=== PATIENT | female | born 1975 | race Caucasian/White ===

== ENCOUNTER 2016-10-13 16:55 | Emergency (ER) | payer OTHER ==
[~2016-10-13] VITALS: Ht 167.6 cm; Wt 69.9 kg
[~2016-10-13 16:55] MED LIST: BACTRIM DS 800/1 TAB PO; DOLOPHINE10 MG PO; TYLENOL #3 300/1 TAB PO
[2016-10-13 17:22] VITALS: BP 152/97
--- NOTE | 2016-10-13 20:00 | NUR ---
TO ER BED 6
--- NOTE | 2016-10-13 20:05 | NUR ---
41Y F BIB SELF C/O BILAT LOWER BACK PAIN X 8 DAYS WITH VOMITING AND LOOSE STOOLS.; SKIN IS PINK/WARM/DRY; AAOX4 WITH EVEN AND STEADY GAIT; LUNGS CLEAR BL; HR EVEN AND REGULAR; PT DENIES ANY FEVER, CP, SOB, OR COUGH AT THIS TIME; PATIENT STATES PAIN OF 8/10 AT THIS TIME; VSS; PATIENT POSITIONED FOR COMFORT; HOB ELEVATED; BEDRAILS UP X2; BED DOWN. ER MD MADE AWARE OF PT STATUS.
--- NOTE | 2016-10-13 20:26 | NUR ---
Patient being evaluated by physician DR DAMIAN at bedside.
[2016-10-13] MEDS ORDERED: KETOROLAC 60 MG/2 ML VIAL IM ONE (20:35)
[2016-10-13] MEDS ORDERED: ONDANSETRON 4 MG ODT PO ONE (20:35)
--- NOTE | 2016-10-13 20:53 | NUR ---
PT LEFT FOR RADIOLOGY
--- NOTE | 2016-10-13 21:11 | NUR ---
PT RETURN FROM RADIOLOGY
[2016-10-13] MEDS ORDERED: HYDROmorphone 1 MG/ML AMP IM ONE (21:20)
[2016-10-13 22:20] VITALS: BP 132/84
--- NOTE | 2016-10-13 22:20 | NUR ---
Patient discharged with v/s stable. Written and verbal after care instructions given and explained. Patient alert, oriented and verbalized understanding of instructions. . All questions addressed prior to discharge. ID band removed. Patient advised to follow up with PMD. Rx of ZOFRAN 4MG ODT, MOTRIN 800MG, ULTRAM 50MG given. Patient educated on indication of medication including possible reaction and side effects. Opportunity to ask questions provided and answered.
== END 2016-10-13 22:20 | disposition home or self-care (01) ==
LOC: MED 16:55
DX: S39.011A Strain of muscle, fascia and tendon of abdomen, initial encounter (principal); K52.9 Noninfective gastroenteritis and colitis, unspecified; R03.0 Elevated blood-pressure reading, without diagnosis of hypertension; X58.XXXA Exposure to other specified factors, initial encounter; Y93.89 Activity, other specified; Y92.89 Other specified places as the place of occurrence of the external cause; Y99.8 Other external cause status
CPT/HCPCS: 36415; 74022; 80053; 81001; 81025; 83690; 85025; 96372; 99285; J1170; J1885; S0119

== ENCOUNTER 2016-11-17 18:01 | Emergency (ER) | payer OTHER ==
[~2016-11-17] VITALS: Ht 167.6 cm; Wt 71.7 kg
[2016-11-17 18:36] VITALS: BP 135/92
--- NOTE | 2016-11-17 21:01 | NUR ---
PATIENT PRESENTS TO ED WITH C/O VOMIT SINCE AUG 2016 D/T HOLE IN MUSCOUS MEMBRANE OF UPPER DENTURES AND L LEG STIFFNESS AFTER FALLING ASLEEP AND MIGRAINE 10/10 PAIN DESPITE TAKING TYLENOL AND MOTRIN AT HOME . PT STATES SHE HAS HX OF HEP C . ; SKIN IS PINK/WARM/DRY; AAOX4 WITH EVEN AND STEADY GAIT; LUNGS CLEAR BL; HR EVEN AND REGULAR; PT DENIES ANY FEVER, CP, SOB, OR COUGH AT THIS TIME; PATIENT STATES PAIN OF 10/10 AT THIS TIME; VSS; PATIENT POSITIONED FOR COMFORT; HOB ELEVATED; BEDRAILS UP X2; BED DOWN. ER MD MADE AWARE OF PT STATUS.
--- NOTE | 2016-11-17 21:01 | NUR ---
PT TAKEN TO BED 3
[2016-11-17] MEDS ORDERED: ONDANSETRON 4 MG ODT PO ONE (21:50)
[2016-11-17] MEDS ORDERED: HYDROmorphone 1 MG/ML AMP IM ONE (21:50)
[2016-11-17 22:11] VITALS: BP 137/87
--- NOTE | 2016-11-17 22:11 | NUR ---
Patient discharged with v/s stable. Written and verbal after care instructions given and explained. Patient alert, oriented and verbalized understanding of instructions. Ambulatory with steady gait. All questions addressed prior to discharge. ID band removed. Patient advised to follow up with PMD. Rx of PERCOGESIC 325/12.5MG TAB AND VALIUM 5MG given. Patient educated on indication of medication including possible reaction and side effects. Opportunity to ask questions provided and answered.
== END 2016-11-17 22:11 | disposition home or self-care (01) ==
LOC: MED 18:01
DX: R11.2 Nausea with vomiting, unspecified (principal); R19.7 Diarrhea, unspecified; R10.9 Unspecified abdominal pain; R51 Headache; I10 Essential (primary) hypertension; Z88.6 Allergy status to analgesic agent
CPT/HCPCS: 81002; 81025; 96372; 99283; J1170; S0119